=== PATIENT | male | born 1990 | race American Indian/Alaskan Native ===

== ENCOUNTER 2019-07-21 10:11 | Emergency (ER) | payer OTHER ==
[2019-07-21 10:19] VITALS: BP 133/78
[2019-07-21] MEDS ORDERED: TORADOL IM ONE (10:52)
[2019-07-21] MEDS ORDERED: FLEXERIL PO ONE (10:52)
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
== END 2019-07-21 11:19 | disposition home or self-care (01) ==
LOC: ED 10:11
DX: S16.1XXA Strain of muscle, fascia and tendon at neck level, initial encounter (principal); J45.909 Unspecified asthma, uncomplicated; Z79.899 Other long term (current) drug therapy; V89.2XXA Person injured in unspecified motor-vehicle accident, traffic, initial encounter; Y93.89 Activity, other specified; Y92.488 Other paved roadways as the place of occurrence of the external cause; Y99.8 Other external cause status
CPT/HCPCS: 96372; 99282; J1885